=== PATIENT | female | born 1995 | race Caucasian/White ===

== ENCOUNTER 2017-03-20 23:59 | Emergency (ER) | payer BC ==
[~2017-03-20] VITALS: Ht 157.5 cm; Wt 59.4 kg
[2017-03-21 01:53] VITALS: BP 139/76
[2017-03-21] MEDS ORDERED: BACTRIM,SEPT1 TABLET PO (01:54)
== END 2017-03-21 01:54 | disposition home or self-care (01) ==
LOC: EME 23:59
DX: L08.9 Local infection of the skin and subcutaneous tissue, unspecified (principal); M79.5 Residual foreign body in soft tissue; N61.1 Abscess of the breast and nipple; Z18.10 Retained metal fragments, unspecified
CPT/HCPCS: 99281; 99284